=== PATIENT | female | born 1945 | race Caucasian/White ===

== ENCOUNTER 2022-01-18 06:33 | Inpatient (IN) ==
[2022-01-12 12:15] LABS: Basophils # 0.1 10*3/uL (0.0-0.2); Basophils % 0.6 % (0.0-0.8); Eosinophils # 0.5 10*3/uL (0.0-0.87); Eosinophils % 5.2 % (0.00-10.9); Hematocrit 34.9 VOL% (35.7-47.0); Hemoglobin 10.4 GM/DL (12.0-16.0); Immature Granulocytes % 0.4 %; Immature Granulocytes Absolute 0.04 #; Lymphocytes # 2.1 10*3/uL (1.4-4.0); Lymphocytes % 21.8 % (21.3-54.2); Mean Corpuscular HGB Conc 29.8 GM/DL (32-36); Monocytes % 10.5 % (1.7-12.7); Neutrophils % 61.5 % (38.7-73.9); Platelet Count 253 T/CUMM (130-400); Red Blood Count 4.31 MC/CUMM (3.8-5.5); Red Cell Distribution Width 23.4 % (9.3-17.3); White Blood Count 9.6 T/CUMM (4-12)
[2022-01-12 12:33] LABS: Calcium 9.2 MG/DL (8.5-10.1); Potassium 5.2 MMOL/L (3.5-5.1)
[2022-01-12 12:54] LABS: Burr Cells Slight; Microcytosis Slight
[2022-01-12 12:55] LABS: Hypochromia Slight; Ovalocytes Slight; Platelet Estimate Normal
[2022-01-18] MEDS ORDERED: ERTAPENEM 1,000 MG in SODIUM CHLORIDE 0.9% 100 ML IV ONE (07:00)
[2022-01-18] MEDS ORDERED: LACTATED RINGERS 1,000 ML IV SCH (07:30)
[2022-01-18 08:07] LABS: Calcium 9.6 MG/DL (8.5-10.1); Osmolality,Calculated 281.1 MOS/KG (273-304); Potassium 4.7 MMOL/L (3.5-5.1)
[2022-01-18] MEDS ORDERED: propofoL 200 MG/20 ML VIAL IV ONE (09:16)
[2022-01-18] MEDS ORDERED: ONDANSETRON 4 MG/2 ML VIAL ONE ×2 (09:16→12:24)
[2022-01-18] MEDS ORDERED: fentaNYL 100 MCG/2 ML VIAL ONE ×2 (09:16→12:25)
[2022-01-18] MEDS ORDERED: ROCURONIUM 50 MG/5 ML VIAL IV ONE (09:16)
[2022-01-18] MEDS ORDERED: LIDOCAINE 2% 5 ML VIAL ONE (09:16)
[2022-01-18] MEDS ORDERED: MIDAZOLAM 2 MG/2 ML VIAL ONE (09:16)
[2022-01-18] MEDS ORDERED: DEXAMETHASONE 4 MG/1 ML VIAL ONE (09:19)
[2022-01-18] MEDS ORDERED: ROPIVACAINE 0.5% 30 ML VIAL ONE (09:20)
[2022-01-18] MEDS ORDERED: LIDOCAINE 1% 5 ML VIAL ONE (09:20)
[2022-01-18] MEDS ORDERED: INDOCYANINE GREEN 25 MG VIAL IV ONE (09:33)
[2022-01-18] MEDS ORDERED: NEOSTIGMINE 10 MG/10 ML VIAL ONE (13:36)
[2022-01-18] MEDS ORDERED: TISSUE ADHESIVE 1 EACH APPLICATOR TOP ONE (13:50)
[2022-01-18] MEDS ORDERED: SEVOFLURANE 1 UNIT/15 MINUTE INH ONE (13:59)
[2022-01-18] MEDS ORDERED: LACTATED RINGERS 1,000 ML IV ONE (13:59)
[2022-01-18] MEDS ORDERED: ONDANSETRON 4 MG/2 ML VIAL IV PRN ×2 (14:13→14:35)
[2022-01-18] MEDS: HYDROmorphone 1 MG/1 ML SYRINGE IV PRN ×4 (14:30→21:59)
[2022-01-18 14:56] LABS: Basophils % 0.3 % (0.0-0.8); Eosinophils # 0.1 10*3/uL (0.0-0.87); Eosinophils % 0.9 % (0.00-10.9); Hematocrit 37.6 VOL% (35.7-47.0); Hemoglobin 11.3 GM/DL (12.0-16.0); Immature Granulocytes % 0.5 %; Immature Granulocytes Absolute 0.05 #; Lymphocytes # 1.2 10*3/uL (1.4-4.0); Lymphocytes % 11.8 % (21.3-54.2); Mean Corpuscular HGB Conc 30.1 GM/DL (32-36); Mean Corpuscular Volume 80.3 FL (87-102); Monocytes # 0.2 10*3/uL (0.11-0.8); Monocytes % 1.7 % (1.7-12.7); Neutrophils % 84.8 % (38.7-73.9); Platelet Count 232 T/CUMM (130-400); Red Blood Count 4.68 MC/CUMM (3.8-5.5); Red Cell Distribution Width 22.4 % (9.3-17.3); White Blood Count 10.5 T/CUMM (4-12)
[2022-01-18 15:01] LABS: Calcium 8.9 MG/DL (8.5-10.1); Osmolality,Calculated 278.4 MOS/KG (273-304); Potassium 4.7 MMOL/L (3.5-5.1)
[2022-01-18 15:18] LABS: Hypochromia Slight; Microcytosis Slight; Ovalocytes Few
[2022-01-18 15:19] LABS: Burr Cells Slight; Platelet Estimate Increased
[2022-01-18] MEDS: LACTATED RINGERS 1,000 ML IV SCH (15:41)
[2022-01-18] MEDS: KETOROLAC 15 MG/1 ML VIAL IV SCH ×2 (15:42→20:18)
[2022-01-18] MEDS: METOPROLOL TARTRATE 25 MG TABLET PO SCH ×2 (15:42→22:04)
[2022-01-18] MEDS ORDERED: ATORVASTATIN 40 MG TABLET PO SCH (21:00)
[2022-01-18] MEDS: ALVIMOPAN 12 MG CAPSULE PO SCH (22:04)
[2022-01-19] MEDS: KETOROLAC 15 MG/1 ML VIAL IV SCH (04:02)
[2022-01-19] MEDS: HYDROmorphone 1 MG/1 ML SYRINGE IV PRN (05:52)
[2022-01-19 06:05] LABS: Basophils % 0.2 % (0.0-0.8); Hematocrit 33.3 VOL% (35.7-47.0); Hemoglobin 10.1 GM/DL (12.0-16.0); Immature Granulocytes % 0.5 %; Immature Granulocytes Absolute 0.08 #; Lymphocytes # 1.4 10*3/uL (1.4-4.0); Mean Corpuscular HGB Conc 30.3 GM/DL (32-36); Mean Corpuscular Volume 80.2 FL (87-102); Monocytes # 1.5 10*3/uL (0.11-0.8); Monocytes % 9.9 % (1.7-12.7); Neutrophils % 80.4 % (38.7-73.9); Platelet Count 261 T/CUMM (130-400); Red Blood Count 4.15 MC/CUMM (3.8-5.5); White Blood Count 15.6 T/CUMM (4-12)
[2022-01-19 06:20] LABS: Calcium 8.9 MG/DL (8.5-10.1); Osmolality,Calculated 278.5 MOS/KG (273-304); Potassium 4.3 MMOL/L (3.5-5.1)
[2022-01-19 06:25] LABS: Hypochromia 1+; Microcytosis 1+; Ovalocytes Few; Platelet Estimate Normal
[2022-01-19] MEDS ORDERED: ENOXAPARIN 40 MG/0.4 ML SYRINGE SUBCUT SCH (08:30)
[2022-01-19] MEDS: METOPROLOL TARTRATE 25 MG TABLET PO SCH (08:53)
[2022-01-19] MEDS: ALVIMOPAN 12 MG CAPSULE PO SCH (08:53)
[2022-01-19] MEDS ORDERED: amLODIPine 2.5 MG TABLET PO SCH (09:00)
[2022-01-19] MEDS ORDERED: ASPIRIN CHEW 81 MG TABLET PO SCH (09:00)
[2022-01-19] MEDS: LACTATED RINGERS 1,000 ML IV SCH (09:29)
[2022-01-19 12:11] VITALS: BP 107/52
== END 2022-01-19 14:15 | disposition home or self-care (01) | DRG 330 ==
LOC: N.OR 06:33 → N.SDSINP 06:34 → N.3E 14:05
PROVIDERS: ADMIT Surgery; ATTEND Surgery

== ENCOUNTER 2022-03-03 05:31 | Inpatient (IN) ==
[2022-03-03] MEDS ORDERED: LIDOCAINE 2% 5 ML VIAL ONE (06:23)
[2022-03-03] MEDS ORDERED: propofoL 200 MG/20 ML VIAL IV ONE (06:23)
[2022-03-03] MEDS ORDERED: ROCURONIUM 50 MG/5 ML VIAL IV ONE (06:23)
[2022-03-03] MEDS ORDERED: fentaNYL 100 MCG/2 ML VIAL ONE (06:24)
[2022-03-03] MEDS ORDERED: BUPIVACAINE MPF 0.25% 10 ML VIAL ONE (06:32)
[2022-03-03] MEDS ORDERED: LIDOCAINE 1%/EPI INJ 20 ML VIAL ONE (06:32)
[2022-03-03] MEDS ORDERED: TISSUE ADHESIVE 1 EACH APPLICATOR TOP ONE (06:32)
[2022-03-03] MEDS ORDERED: ACETAMINOPHEN INJ 1,000 MG/100 ML VIAL IV ONE (06:42)
[2022-03-03 06:43] LABS: Basophils # 0.1 10*3/uL (0.0-0.2); Basophils % 0.7 % (0.0-0.8); Eosinophils # 0.5 10*3/uL (0.0-0.87); Eosinophils % 5.4 % (0.00-10.9); Hemoglobin 9.3 GM/DL (12.0-16.0); Immature Granulocytes % 0.4 %; Immature Granulocytes Absolute 0.03 #; Lymphocytes # 1.8 10*3/uL (1.4-4.0); Mean Corpuscular Volume 81.6 FL (87-102); Mean Platelet Volume 11.8 FL (9.6-12.0); Monocytes # 0.8 10*3/uL (0.11-0.8); Neutrophils % 61.5 % (38.7-73.9); Platelet Count 238 T/CUMM (130-400); Red Cell Distribution Width 18.7 % (9.3-17.3); White Blood Count 8.3 T/CUMM (4-12)
[2022-03-03] MEDS ORDERED: FAMOTIDINE 20 MG/2 ML VIAL IV ONE (06:43)
[2022-03-03] MEDS ORDERED: ALBUMIN 5% 12.5 GM/250 ML VIAL IV ONE (06:44)
[2022-03-03] MEDS ORDERED: ALVIMOPAN 12 MG CAPSULE PO ONE (06:48)
[2022-03-03] MEDS ORDERED: ERTAPENEM 1,000 MG VIAL ONE (06:50)
[2022-03-03 06:58] LABS: Osmolality,Calculated 280.3 MOS/KG (273-304); Potassium 3.6 MMOL/L (3.5-5.1)
[2022-03-03] MEDS ORDERED: LACTATED RINGERS 1,000 ML IV SCH (07:00)
[2022-03-03] MEDS ORDERED: ePHEDrine 50 MG/ML VIAL ONE (07:07)
[2022-03-03] MEDS ORDERED: GLYCOPYRROLATE 0.4 MG/2 ML VIAL ONE (07:11)
[2022-03-03] MEDS ORDERED: ERTAPENEM 1,000 MG in SODIUM CHLORIDE 0.9% 100 ML IV ONE (07:30)
[2022-03-03] MEDS ORDERED: ONDANSETRON 4 MG/2 ML VIAL ONE (07:43)
[2022-03-03] MEDS ORDERED: SEVOFLURANE 1 UNIT/15 MINUTE INH ONE ×11 (07:44→09:32)
[2022-03-03] MEDS ORDERED: SUGAMMADEX 200 MG/2 ML VIAL IV ONE (08:56)
[2022-03-03] MEDS ORDERED: LACTATED RINGERS 1,000 ML IV ONE (09:32)
[2022-03-03] MEDS ORDERED: ONDANSETRON 4 MG/2 ML VIAL IV PRN (11:14)
[2022-03-03] MEDS: HYDROmorphone 1 MG/1 ML SYRINGE IV PRN ×2 (11:19→11:26)
[2022-03-03] MEDS ORDERED: ERYTHROMYCIN 0.5% OPHT OINT 1 GM TUBE ONE (11:23)
[2022-03-03] MEDS ORDERED: MINERAL OIL/PETROLATUM OPH OINT 3.5 GM TUBE ONE (11:25)
[2022-03-03 14:09] VITALS: BP 140/40
== END 2022-03-03 14:20 | disposition home or self-care (01) | DRG 376 ==
LOC: N.SDSINP 05:31
PROVIDERS: ADMIT Surgery; ATTEND Surgery